=== PATIENT | female | born 1995 | race Two or more races ===

== ENCOUNTER 2018-01-10 16:54 | Outpatient (CLI) | payer OTHER ==
[~2018-01-10 16:54] MED LIST: AZITHROMYCIN250 MG1 PO; ENDOCET 5-3251 EACH PO; IBUPROFEN800 MG PO; MEDROXYPRO150 MG/1 M IM; NIFEDIPINE ER30 MG PO; NO MEDS; NOHOMEMEDS; PRENATAL TABLE1 EAC3 PO; REGLAN10 MG PO; ROBITUSSIN AC,T10 ML PO; SUMATRIPTAN SUC25 MG PO; TESSALON PERLE100 MG PO; TYLENOL REGULA325 MG PO
[2018-01-10 17:04] VITALS: BP 131/77
== END 2018-01-10 18:15 | disposition home or self-care (01) ==
LOC: LDRP-OP 16:54 → 2WEST 16:56
DX: O26.892 Other specified pregnancy related conditions, second trimester (principal); R10.2 Pelvic and perineal pain; Z3A.21 21 weeks gestation of pregnancy
CPT/HCPCS: 59025; G0378

== ENCOUNTER → 2018-03-07 | Outpatient (CLI) | payer OTHER ==
[~2018-03-07] VITALS: Ht 162.6 cm; Wt 75.0 kg
[2018-03-07 15:24] VITALS: BP 131/70
== END | disposition home or self-care (01) ==
LOC: IVINF 15:00
DX: Z34.83 Encounter for supervision of other normal pregnancy, third trimester (principal); Z3A.29 29 weeks gestation of pregnancy; Z67.11 Type A blood, Rh negative
CPT/HCPCS: 96372; J2790

== ENCOUNTER 2018-05-14 20:48 | Outpatient (CLI) | payer OTHER ==
[2018-05-14 21:04] VITALS: BP 121/81
[2018-05-14 21:14] VITALS: BP 122/83
[2018-05-14 21:39] LABS: BASOPHIL (%) 0.2 % (0-1); EOSINOPHIL (%) 0.4 % (0-5); HEMATOCRIT 33.3 % (36.0-46.0); HEMOGLOBIN 11.4 G/DL (11.9-15.5); IMMATURE GRANULOCYTE (%) 0.7 % (0.0-0.7); LYMPHOCYTE (%) 17.5 % (15-42); LYMPHOCYTE COUNT 1.8 K/uL (1.0-2.8); MCH 32.1 PG (29.0-34.0); MCHC 34.2 G/DL (30.0-36.0); MCV 93.8 FL (83-99); MONOCYTE COUNT 0.8 K/uL (0-0.8); NEUTROPHIL (%) 73.2 % (45-76); NEUTROPHIL COUNT 7.5 K/uL (1.8-6.4); PLATELET COUNT 252 K/uL (156-360); RBC DIS.WIDTH-CV 12.8 % (11.8-14.6); RED BLOOD COUNT 3.55 M/uL (3.80-5.20); WHITE BLOOD COUNT 10.2 K/uL (4.1-10.2)
[2018-05-14 22:01] LABS: ALBUMIN 3.4 G/DL (3.2-4.8); ALKALINE PHOSPHATASE 155 IU/L (3-129); ALT (GPT) 10 IU/L (3-49); AST (GOT) 15 IU/L (2-34); CHLORIDE 105 MEQ/L (99-109); CREATININE 0.7 MG/DL (0.6-1.3); GFR ESTIMATE (CALCULATED) > 59 mL/min/; GLUCOSE 92 mg/dL (70-99); POTASSIUM 3.7 MEQ/L (3.7-5.4); SODIUM 135 MEQ/L (136-147); TOTAL BILIRUBIN 0.5 MG/DL (0.0-1.0); TOTAL PROTEIN 6.4 G/DL (6.4-8.3); UREA NITROGEN (BUN) 9 mg/dL (9-23)
[2018-05-14 22:11] VITALS: BP 125/82
[2018-05-14 22:59] LABS: UR CREATININE CONCENTRATION 169.1 MG/DL
== END 2018-05-14 22:50 | disposition home or self-care (01) ==
LOC: LDRP-OP → 2WEST 20:50 → LDRP-OP 05-16 08:00
PROVIDERS: Nurse Practitioner
DX: O13.3 Gestational [pregnancy-induced] hypertension without significant proteinuria, third trimester (principal); Z3A.39 39 weeks gestation of pregnancy
CPT/HCPCS: 59025; 80053; 82570; 84156; 85025; G0378

== ENCOUNTER 2018-05-16 06:49 | Inpatient (IN) | payer OTHER ==
[2018-05-16] VITALS (16 sets, daily range): BP systolic 111–142; BP diastolic 56–95
[~2018-05-16] VITALS: Ht 162.6 cm; Wt 79.8 kg
[2018-05-16 07:38] LABS: BASOPHIL (%) 0.2 % (0-1); EOSINOPHIL (%) 0.6 % (0-5); EOSINOPHIL COUNT 0.1 K/uL (0-0.3); HEMOGLOBIN 11.2 G/DL (11.9-15.5); IMMATURE GRANULOCYTE (%) 0.9 % (0.0-0.7); LYMPHOCYTE (%) 25.8 % (15-42); LYMPHOCYTE COUNT 2.4 K/uL (1.0-2.8); MCH 32.5 PG (29.0-34.0); MCHC 33.9 G/DL (30.0-36.0); MCV 95.7 FL (83-99); MONOCYTE (%) 8.7 % (3-12); MONOCYTE COUNT 0.8 K/uL (0-0.8); NEUTROPHIL (%) 63.8 % (45-76); PLATELET COUNT 225 K/uL (156-360); RBC DIS.WIDTH-CV 12.9 % (11.8-14.6); RBC DIS.WIDTH-SD 44.6 % (39-53); RED BLOOD COUNT 3.45 M/uL (3.80-5.20); WHITE BLOOD COUNT 9.4 K/uL (4.1-10.2)
[2018-05-16 09:35] LABS: AMPHETAMINE NEGATIVE (500 ng/mL); BARBITURATES NEGATIVE (200 ng/mL); BENZODIAZEPINES NEGATIVE (150 ng/mL); BUPRENORPHINE NEGATIVE (10 ng/mL); COCAINE NEGATIVE (150 ng/mL); METHADONE NEGATIVE (200 ng/mL); METHAMPHETAMINE NEGATIVE (500 ng/mL); OPIATES (MORPHINE) NEGATIVE (100 ng/mL); OXYCODONE NEGATIVE (100 ng/mL); PHENCYCLIDINE NEGATIVE (25 ng/mL); PROPOXYPHENE NEGATIVE (300 ng/mL); THC CANNABINOIDS NEGATIVE (50 ng/mL); TRICYCLIC ANTIDEPRESSANTS NEGATIVE (300 ng/mL)
[2018-05-16] MEDS ORDERED: MOTRIN800 MG PO (18:49)
[2018-05-17 07:15] VITALS: BP 138/87
[2018-05-17 23:10] VITALS: BP 127/82
[2018-05-18 07:00] VITALS: BP 117/74
== END 2018-05-18 13:40 | disposition home or self-care (01) | DRG 775 ==
LOC: LDRP-OP 06:49 → 2WEST 06:50 → LDRP-OP 07:24 → 2WEST 18:08 → LDRP-OP 06-19 23:12
PROVIDERS: Obstetrics & Gynecology
PROC: 3E033VJ Introduction of Other Hormone into Peripheral Vein, Percutaneous Approach (ICD-10-PCS; principal; 2018-05-14)
PROC: 10E0XZZ Delivery of Products of Conception, External Approach (ICD-10-PCS; 2018-05-16)
PROC: 10907ZC Drainage of Amniotic Fluid, Therapeutic from Products of Conception, Via Natural or Artificial Opening (ICD-10-PCS; 2018-05-16)
DX: O13.4 Gestational [pregnancy-induced] hypertension without significant proteinuria, complicating childbirth (principal); O99.824 Streptococcus B carrier state complicating childbirth; Z37.0 Single live birth; Z3A.39 39 weeks gestation of pregnancy
CPT/HCPCS: 85025; J0690; J7120